=== PATIENT | female | born 1955 | race African-American/Black ===

== ENCOUNTER → 2018-01-02 | Outpatient (CLI) | payer OTHER | LOC: M.RAD 12:36 | DX: M17.11 Unilateral primary osteoarthritis, right knee (principal); M25.461 Effusion, right knee ==

== ENCOUNTER → 2018-02-26 | Outpatient (CLI) | payer OTHER | LOC: M.RAD 10:59 | DX: M51.36 Other intervertebral disc degeneration, lumbar region (principal); M12.88 Other specific arthropathies, not elsewhere classified, other specified site ==